=== PATIENT | female | born 1945 | race Caucasian/White ===

== ENCOUNTER 2017-05-15 10:00 | Emergency (ER) | payer MEDICARE, BC ==
[2017-05-15 11:13] LABS: CHLORIDE,CL 105 mEq/L (98-106); SODIUM,NA 140 mEq/L (136-145)
[2017-05-15 11:16] VITALS: BP 146/80
[2017-05-15] MEDS ORDERED: LORazepam 2 MG/ML SDV IM ONE (11:50)
--- NOTE | 2017-05-15 11:54 | EDM.PDOC ---
ED HPI GENERAL MEDICAL PROBLEM - General Chief Complaint: General Stated Complaint: anxiety attack Time Seen by Provider: 05/15/17 10:10 Source of Information: Reports: Patient, Family (son) History Limitations: Reports: No Limitations - History of Present Illness INITIAL COMMENTS - FREE TEXT/NARRATIVE: States has been having increase in anxiety attacks. Has been having them daily this week. Usually they start in the afternoon or later evening but this one started this morning. The anxiety is aggravating her parkinson's as her tremors are much worse which is causing her to have muscle aches and pains from that. States that she is not sure what is making her anxious but she worries about everything. She is worried about her heart although she denies any chest pains. Has been taking her meds as ordered and does see a counseler at [facility] by the name of Fabiana. She denies missing any of her doses at this time. Son does get her meds ready for her. No suicidal thoughts noted. Onset: Gradual Duration: Getting Worse Associated Symptoms: Denies: Chest Pain, Diaphoresis, Nausea/Vomiting, Shortness of Breath, Syncope - Related Data Allergies Allergy/AdvReac Type Severity Reaction Status Date / Time amoxicillin Allergy Cannot Verified 05/15/17 10:03 Remember cephalexin [From Keflex] Allergy Cannot Verified 05/15/17 10:03 Remember clavulanic acid Allergy Cannot Verified 05/15/17 10:03 [From Augmentin] Remember lomefloxacin [From Maxaquin] Allergy Cannot Verified 05/15/17 10:03 Remember Quinolones Allergy Cannot Verified 05/15/17 10:03 Remember terbutaline [From Brethine] Allergy Cannot Verified 05/15/17 10:03 Remember Home Meds: Home Meds Aspirin [Low Dose Aspirin EC] 81 mg PO BEDTIME 05/19/16 [History] Bisacodyl [Dulcolax] 10 mg RECTAL DAILY PRN 05/19/16 [History] Carbidopa/Levodopa [Sinemet 25-100 mg Tablet] 1 tab PO ASDIRECTED 05/19/16 [ History] Carboxymethylcellulose Sodium [Refresh Tears] 1 drop EYEBOTH BID 05/19/16 [ History] Cyanocobalamin (Vitamin B12) [Vitamin B12] 1,000 mcg IM Q30D 05/19/16 [History] Docusate Sodium [Colace] 100 mg PO DAILY 05/19/16 [History] Levothyroxine Sodium 100 mcg PO DAILY 05/19/16 [History] Melatonin 5 mg PO BEDTIME 05/19/16 [History] Mirtazapine 30 mg PO BEDTIME 05/19/16 [History] clonazePAM [Clonazepam] 0.5 mg PO 06,08,13 05/19/16 [History] clonazePAM [Clonazepam] 1 mg PO 1600 05/19/16 [History] Polyethylene Glycol 3350 [MiraLAX] 17 gm PO DAILY 08/06/16 [History] Sucralfate 1 gm PO QID 04/29/17 [History] busPIRone HCl [Buspirone HCl] 5 mg PO ASDIRECTED 04/29/17 [History] Past Medical History HEENT History: Reports: Sinusitis Cardiovascular History: Reports: Hypertension Neurological History: Reports: Parkinson's Psychiatric History: Reports: Anxiety, Depression Hematologic History: Reports: B12 Deficiency - Past Surgical History HEENT Surgical History: Reports: Tonsillectomy Female Surgical History: Reports: Tubal Ligation Musculoskeletal Surgical History: Reports: Knee Replacement Social & Family History - Family History Family Medical History: Noncontributory - Tobacco Use Smoking Status *Q: Never Smoker Second Hand Smoke Exposure: No - Recreational Drug Use Recreational Drug Use: No - Living Situation & Occupation Living situation: Reports: Single, Alone Occupation: Retired ED ROS GENERAL - Review of Systems Review Of Systems: See Below Constitutional: Reports: No Symptoms HEENT: Reports: No Symptoms Respiratory: Reports: No Symptoms Cardiovascular: Reports: No Symptoms GI/Abdominal: Reports: No Symptoms : Reports: No Symptoms Musculoskeletal: Reports: Muscle Pain. Denies: Muscle Stiffness Skin: Reports: No Symptoms Neurological: Denies: Confusion, Dizziness, Headache Psychiatric: Reports: Anxiety. Denies: Hallucinations, Suicidal Ideation ED EXAM, GENERAL - Physical Exam Exam: See Below Exam Limited By: No Limitations General Appearance: Alert, Anxious Ears: Normal External Exam, Normal Canal, Normal TMs Throat/Mouth: Normal Inspection, Normal Voice, No Airway Compromise Head: Atraumatic, Normocephalic Neck: Normal Inspection, Supple, Non-Tender, Full Range of Motion Respiratory/Chest: No Respiratory Distress, Lungs Clear, Normal Breath Sounds, Chest Non-Tender Cardiovascular: Regular Rate, Rhythm, No Edema GI/Abdominal: Normal Bowel Sounds, Soft, Non-Tender, No Organomegaly Extremities: Other (Has constant uncontrolled shaking of the right leg while lying on the bed. Is able to stop it when she puts pressure on it or stands on it.) Neurological: Alert, Oriented Psychiatric: Anxious Skin Exam: Warm, Dry Course - Vital Signs Last Recorded V/S: Last Vital Signs Temp 98.2 F 05/15/17 11:05 Pulse 65 05/15/17 11:05 Resp 18 05/15/17 11:05 BP 146/80 H 05/15/17 11:05 Pulse Ox 97 05/15/17 11:05 - Orders/Labs/Meds Labs: Laboratory Tests 05/15/17 05/15/17 05/15/17 Range/Units 10:49 10:51 10:51 WBC 6.9 (5.0-10.0) 10^3/uL RBC 4.64 (4.00-5.50) 10^6/uL Hgb 13.6 (12.0-16.0) g/dL Hct 40.6 (37.0-47.0) % MCV 87.5 (82.0-94.0) fL MCH 29.3 (27.0-32.0) pg MCHC 33.5 (33.0-38.0) g/dL RDW Coeff of Srinivasa 13.4 (11.0-15.0) % Plt Count 166 (150-400) 10^3/uL Neut % (Auto) 77.4 (35-85) % Lymph % (Auto) 16.2 (10-55) % Vance % (Auto) 6.0 (0-16) % Eos % (Auto) 0.3 (0-5) % Baso % (Auto) 0.1 (0-3) % Neut # (Auto) 5.31 (1.80-7.00) 10^3/uL Lymph # (Auto) 1.11 (1.00-4.80) 10^3/uL Vance # (Auto) 0.41 (0.00-0.80) 10^3/uL Eos # (Auto) 0.02 (0.00-0.45) 10^3/uL Baso # (Auto) 0.01 10^3/uL Sodium 140 (136-145) mEq/L Potassium 4.7 (3.5-5.0) mEq/L Chloride 105 (98-106) mEq/L Carbon Dioxide 29 (21-32) mmol/L BUN 19 H (7-18) mg/dL Creatinine 0.7 (0.6-1.0) mg/dL Est Cr Clr Drug Dosing TNP Estimated GFR (MDRD) > 60 (>=60) mL/min Glucose 101 H (75-99) mg/dL Calcium 8.9 (8.4-10.1) mg/dL Total Bilirubin 0.3 (0.0-1.0) mg/dL AST 16 (15-37) U/L ALT 13 (12-78) U/L Alkaline Phosphatase 107 (46-116) U/L Total Protein 7.0 (6.4-8.2) g/dL Albumin 3.9 (3.4-5.0) g/dL TSH, Ultra Sensitive 0.11 L (0.36-5.60) uIU/mL Urine Color Yellow (YELLOW) Urine Appearance Clear (CLEAR) Urine pH 7.5 (4.5-8.0) Ur Specific [place] 1.015 (1.003-1.020) Urine Protein Negative (NEGATIVE) mg/dL Urine Glucose (UA) Negative (NEGATIVE) mg/dL Urine Ketones Negative (NEGATIVE) mg/dL Urine Occult Blood Negative (NEGATIVE) Urine Nitrite Negative (NEGATIVE) Urine Bilirubin Negative (NEGATIVE) Urine Urobilinogen 1.0 (0.2-1.0) EU/dL Ur Leukocyte Esterase Negative (NEGATIVE) Urine RBC Not seen (0-5) /HPF Urine WBC Not seen (0-5) /HPF Ur Squamous Epith Cells Occasional H (NOT SEEN) /HPF Meds: Medications Discontinued Medications Generic Name Dose Route Start Last Admin Trade Name Freq PRN Reason Stop Dose Admin Lorazepam Confirm 05/15/17 12:01 05/15/17 12:42 Ativan Administered 05/15/17 12:02 Not Given Dose 2 mg .ROUTE .STK-MED ONE Lorazepam 1 mg 05/15/17 12:00 05/15/17 12:10 Ativan IM 05/15/17 12:01 1 mg ONETIME ONE Administration Departure - Departure Time of Disposition: 11:51 Disposition: Home, Self-Care 01 Condition: Good Clinical Impression: Anxiety - Discharge Information Forms: ED Department Discharge Additional Instructions: Increase the clonazepam to 1 mg 4 times a day. Keep appt with Dr. Mcmullen on Thursday - Problem List & Annotations (1) Anxiety SNOMED Code(s): 65358170 Code(s): F41.9 - ANXIETY DISORDER, UNSPECIFIED Status: Chronic Priority: High - Problem List Review Problem List Initiated/Reviewed/Updated: Yes - Assessment/Plan Plan: Discussed with DR. Mcmullen and recommend med changes as noted above. Dr. Mcmullen will see on follow up Thursday. Return to the ER if symptoms do not improve
[2017-05-15] MEDS ORDERED: LORazepam 2 MG/ML Syringe IM ONE (12:00)
[2017-05-15] MEDS ORDERED: LORazepam 2 MG/ML Syringe ONE (12:01)
== END 2017-05-15 12:20 | disposition home or self-care (01) ==
LOC: CC.ED 10:00
DX: F41.9 Anxiety disorder, unspecified (principal); F32.9 Major depressive disorder, single episode, unspecified; I10 Essential (primary) hypertension; Z98.51 Tubal ligation status; Z98.890 Other specified postprocedural states; Z79.899 Other long term (current) drug therapy; Z79.82 Long term (current) use of aspirin; Z88.8 Allergy status to other drugs, medicaments and biological substances; Z96.659 Presence of unspecified artificial knee joint; Z88.1 Allergy status to other antibiotic agents
CPT/HCPCS: 36415; 80053; 81001; 84443; 85025; 96372; 99283; J2060

== ENCOUNTER 2017-05-19 09:17 | Inpatient (IN) | payer MEDICARE, BC ==
[2017-05-19] MEDS ORDERED: Sodium Chloride 0.9% 10 ML Syringe FLUSH PRN (10:41)
[2017-05-19] MEDS ORDERED: Bisacodyl 10 MG Supp RECTAL PRN (10:45)
[2017-05-19] MEDS: Carbidopa/Levodopa 25-100 MG Tab PO SCH ×5 (10:58→18:47)
[2017-05-19] MEDS: Sertraline 25 MG Tab PO SCH (10:58)
[2017-05-19 11:26] LABS: CHLORIDE,CL 107 mEq/L (98-106); SODIUM,NA 141 mEq/L (136-145)
[2017-05-19] MEDS: ClonazePAM 1 MG Tab PO SCH ×2 (12:53→15:23)
[2017-05-19] MEDS ORDERED: Ondansetron 4 MG Tab.DIS PO PRN (15:09)
[2017-05-19] MEDS: Aspirin 81 MG Tab.EC PO SCH (20:02)
[2017-05-19] MEDS: Mirtazapine 15 MG Tab PO SCH (20:02)
[2017-05-19] MEDS: Enoxaparin 30 MG/0.3 ML Syringe SUBCUT SCH (20:02)
[2017-05-19] MEDS: Temazepam 15 MG Cap PO PRN (20:07)
[2017-05-19] MEDS: MELATONIN 5 MG PO SCH (21:13)
[2017-05-19] MEDS: Polyvinyl Alcohol 1.4% Ophth Soln 15 ML Bottle EYEBOTH SCH (21:13)
[2017-05-20] MEDS: Polyvinyl Alcohol 1.4% Ophth Soln 15 ML Bottle EYEBOTH SCH ×2 (06:06→20:52)
[2017-05-20] MEDS: Carbidopa/Levodopa 25-100 MG Tab PO SCH ×7 (06:07→18:58)
[2017-05-20] MEDS: Levothyroxine 100 MCG Tab PO SCH (06:07)
[2017-05-20] MEDS: ClonazePAM 1 MG Tab PO SCH ×4 (06:07→15:52)
[2017-05-20] MEDS: Polyethylene Glycol 3350 Powder 17 GM Packet PO SCH (07:48)
[2017-05-20] MEDS: Sertraline 25 MG Tab PO SCH (11:00)
[2017-05-20] MEDS: Acetaminophen 325 MG Tab PO PRN (19:46)
[2017-05-20] MEDS: Mirtazapine 15 MG Tab PO SCH (20:52)
[2017-05-20] MEDS: Enoxaparin 30 MG/0.3 ML Syringe SUBCUT SCH (20:52)
[2017-05-20] MEDS: Aspirin 81 MG Tab.EC PO SCH (20:52)
[2017-05-20] MEDS: MELATONIN 5 MG PO SCH (20:53)
[2017-05-21] MEDS: Acetaminophen 325 MG Tab PO PRN (03:50)
[2017-05-21] MEDS: Carbidopa/Levodopa 25-100 MG Tab PO SCH ×7 (06:57→19:12)
[2017-05-21] MEDS: Polyvinyl Alcohol 1.4% Ophth Soln 15 ML Bottle EYEBOTH SCH ×2 (06:57→20:13)
[2017-05-21] MEDS: ClonazePAM 1 MG Tab PO SCH ×4 (06:57→15:59)
[2017-05-21] MEDS: Levothyroxine 100 MCG Tab PO SCH (07:00)
[2017-05-21] MEDS: Polyethylene Glycol 3350 Powder 17 GM Packet PO SCH (08:01)
--- NOTE | 2017-05-21 08:12 | PCM.PN ---
- General Info Date of Service: 05/20/17 Admission Dx/Problem (Free Text): Short of Breath Anxiety Functional Status: Reports: Pain Controlled, Tolerating Diet - Review of Systems General: Reports: Weakness, Fatigue. Denies: Fever HEENT: Reports: No Symptoms Pulmonary: Denies: Shortness of Breath, Cough, Sputum Cardiovascular: Denies: Chest Pain, Edema, Lightheadedness Gastrointestinal: Denies: Abdominal Pain, Nausea, Vomiting Genitourinary: Reports: No Symptoms Musculoskeletal: Reports: No Symptoms Skin: Reports: No Symptoms Neurological: Reports: No Symptoms Psychiatric: Reports: Anxiety - Patient Data Vitals - Most Recent: Last Vital Signs Temp 97.1 F 05/21/17 04:00 Pulse 68 05/21/17 04:00 Resp 18 05/21/17 04:00 BP 130/59 L 05/21/17 04:00 Pulse Ox 98 05/21/17 04:00 Weight - Most Recent: 135 lb 11.2 oz Med Orders - Current: Current Medications Acetaminophen (Tylenol) 650 mg PO Q4H PRN PRN Reason: Pain (Mild 1-3)/fever Last Admin: 05/21/17 03:50 Dose: 650 mg Artificial Tears (Liquitears 1.4% Ophth Soln) 0 ml EYEBOTH 0700,2100 [facility] Last Admin: 05/21/17 06:57 Dose: 1 drop Aspirin (Halfprin) 81 mg PO 2100 [facility] Last Admin: 05/20/17 20:52 Dose: 81 mg Bisacodyl (Dulcolax) 10 mg RECTAL DAILY PRN PRN Reason: Constipation Carbidopa/Levodopa (Sinemet 25-100 Mg) 1 tab PO 1700,1900 [facility] Last Admin: 05/20/17 18:58 Dose: 1 tab Carbidopa/Levodopa (Sinemet 25-100 Mg) 1.5 tab PO 07,09,11,13,15 [facility] Last Admin: 05/21/17 06:57 Dose: 1.5 tab Clonazepam (Klonopin) 1 mg PO 0700,0900,1300,1600 [facility] Last Admin: 05/21/17 06:57 Dose: 1 mg Cyanocobalamin (Vitamin B12) 1,000 mcg IM Q30D [facility] Enoxaparin Sodium (Lovenox) 30 mg SUBCUT Q24H [facility] Last Admin: 05/20/17 20:52 Dose: 30 mg Levothyroxine Sodium (Synthroid) 100 mcg PO 0700 [facility] Last Admin: 05/21/17 07:00 Dose: 100 mcg Mirtazapine (Remeron) 30 mg PO 2100 [facility] Last Admin: 05/20/17 20:52 Dose: 30 mg Ptom[Melatonin] 5 Mg ()) 5 mg PO 2100 [facility] Last Admin: 05/20/17 20:53 Dose: Not Given Ondansetron HCl (Zofran Odt) 4 mg PO Q6H PRN PRN Reason: Nausea/Vomiting Last Admin: 05/19/17 15:23 Dose: 4 mg Polyethylene Glycol (Miralax) 17 gm PO DAILY [facility] Last Admin: 05/21/17 08:01 Dose: 17 gm Sertraline HCl (Zoloft) 50 mg PO 1100 [facility] Last Admin: 05/20/17 11:00 Dose: 50 mg Sodium Chloride (Saline Flush) 10 ml FLUSH ASDIRECTED PRN PRN Reason: Keep Vein Open Temazepam (Restoril) 15 mg PO BEDTIME PRN PRN Reason: Sleep Last Admin: 05/19/17 20:07 Dose: 15 mg - Exam General: Alert, Oriented HEENT: Mucous Membr. Moist/[place] Neck: Supple Lungs: Clear to Auscultation, Normal Respiratory Effort Cardiovascular: Regular Rate, Regular Rhythm GI/Abdominal Exam: Normal Bowel Sounds, Soft, Non-Tender Skin: Warm, Dry Neurological: No New Focal Deficit - Problem List & Annotations (1) Anxiety SNOMED Code(s): 60574795 Code(s): F41.9 - ANXIETY DISORDER, UNSPECIFIED Status: Chronic Priority: High Current Visit: Yes (2) Shortness of breath SNOMED Code(s): 067550464 Code(s): R06.02 - SHORTNESS OF BREATH Status: Acute Priority: High Current Visit: Yes - Problem List Review Problem List Initiated/Reviewed/Updated: Yes - Assessment Assessment:: Anxiety SOB - Plan Plan:: Patient doing better today. States less short of breath today, feels anxiety is better. Does admit to being very depressed. Cardiac enzymes, d-dimer, work up on admit was negative. Tolerating diet. Encouraged to ambulate. Possible discharge home tomorrow.
[2017-05-21] MEDS: Sertraline 25 MG Tab PO SCH (10:59)
--- NOTE | 2017-05-21 12:26 | PCM.PN ---
- General Info Date of Service: 05/21/17 Admission Dx/Problem (Free Text): Short of Breath Anxiety Functional Status: Reports: Pain Controlled, Tolerating Diet, Ambulating - Review of Systems General: Reports: Weakness, Fatigue. Denies: Fever HEENT: Reports: No Symptoms Pulmonary: Denies: Shortness of Breath, Cough Cardiovascular: Denies: Chest Pain, Edema, Lightheadedness Gastrointestinal: Denies: Abdominal Pain, Nausea, Vomiting Musculoskeletal: Reports: No Symptoms Skin: Reports: No Symptoms Psychiatric: Reports: Depression, Anxiety - Patient Data Vitals - Most Recent: Last Vital Signs Temp 97.7 F 05/21/17 08:00 Pulse 95 05/21/17 08:00 Resp 20 05/21/17 08:00 BP 134/47 L 05/21/17 08:00 Pulse Ox 96 05/21/17 08:00 Weight - Most Recent: 135 lb 11.2 oz Med Orders - Current: Current Medications Acetaminophen (Tylenol) 650 mg PO Q4H PRN PRN Reason: Pain (Mild 1-3)/fever Last Admin: 05/21/17 03:50 Dose: 650 mg Artificial Tears (Liquitears 1.4% Ophth Soln) 0 ml EYEBOTH 0700,2100 [facility] Last Admin: 05/21/17 06:57 Dose: 1 drop Aspirin (Halfprin) 81 mg PO 2100 [facility] Last Admin: 05/20/17 20:52 Dose: 81 mg Bisacodyl (Dulcolax) 10 mg RECTAL DAILY PRN PRN Reason: Constipation Carbidopa/Levodopa (Sinemet 25-100 Mg) 1 tab PO 1700,1900 [facility] Last Admin: 05/20/17 18:58 Dose: 1 tab Carbidopa/Levodopa (Sinemet 25-100 Mg) 1.5 tab PO 07,09,11,13,15 [facility] Last Admin: 05/21/17 10:59 Dose: 1.5 tab Clonazepam (Klonopin) 1 mg PO 0700,0900,1300,1600 [facility] Last Admin: 05/21/17 09:03 Dose: 1 mg Cyanocobalamin (Vitamin B12) 1,000 mcg IM Q30D [facility] Enoxaparin Sodium (Lovenox) 30 mg SUBCUT Q24H [facility] Last Admin: 05/20/17 20:52 Dose: 30 mg Levothyroxine Sodium (Synthroid) 100 mcg PO 0700 [facility] Last Admin: 05/21/17 07:00 Dose: 100 mcg Mirtazapine (Remeron) 30 mg PO 2100 [facility] Last Admin: 05/20/17 20:52 Dose: 30 mg Ptom[Melatonin] 5 Mg ()) 5 mg PO 2100 [facility] Last Admin: 05/20/17 20:53 Dose: Not Given Ondansetron HCl (Zofran Odt) 4 mg PO Q6H PRN PRN Reason: Nausea/Vomiting Last Admin: 05/19/17 15:23 Dose: 4 mg Polyethylene Glycol (Miralax) 17 gm PO DAILY [facility] Last Admin: 05/21/17 08:01 Dose: 17 gm Sertraline HCl (Zoloft) 50 mg PO 1100 [facility] Last Admin: 05/21/17 10:59 Dose: 50 mg Sodium Chloride (Saline Flush) 10 ml FLUSH ASDIRECTED PRN PRN Reason: Keep Vein Open Temazepam (Restoril) 15 mg PO BEDTIME PRN PRN Reason: Sleep Last Admin: 05/19/17 20:07 Dose: 15 mg - Exam General: Alert, Oriented HEENT: Mucous Membr. Moist/[place] Neck: Supple Lungs: Clear to Auscultation, Normal Respiratory Effort Cardiovascular: Regular Rate, Regular Rhythm GI/Abdominal Exam: Normal Bowel Sounds, Soft, Non-Tender Extremities: Normal Inspection, No Pedal Edema Skin: Warm, Dry Neurological: No New Focal Deficit - Problem List & Annotations (1) Depression SNOMED Code(s): 81072780 Code(s): F32.9 - MAJOR DEPRESSIVE DISORDER, SINGLE EPISODE, UNSPECIFIED Status: Acute Priority: High Current Visit: Yes Qualifiers: Depression Type: major depressive disorder Major depression recurrence: recurrent Active/Remission status: currently active Major depression episode severity: severe Psychotic features: without psychotic features Qualified Code(s): F33.2 - Major depressive disorder, recurrent severe without psychotic features (2) Anxiety SNOMED Code(s): 03170913 Code(s): F41.9 - ANXIETY DISORDER, UNSPECIFIED Status: Chronic Priority: High Current Visit: Yes (3) Shortness of breath SNOMED Code(s): 542930046 Code(s): R06.02 - SHORTNESS OF BREATH Status: Acute Priority: High Current Visit: Yes - Problem List Review Problem List Initiated/Reviewed/Updated: Yes - Assessment Assessment:: Depression Anxiety SOB - Plan Plan:: Patient doing better today. States less short of breath today, feels anxiety is better. Does admit to being very depressed. Cardiac enzymes, d-dimer, work up on admit was negative. Tolerating diet. Encouraged to ambulate. Possible discharge home tomorrow. 05-21-2017 Patient much more down today, sad. Talking of and how she wishes she "could just ". Denies being suicidal but does feel very hopeless. Not wanting to get up and moving much today. Denies feeling short of breath. Does still feel anxious. Did discuss custodial placement with patient as has had difficulty in the past especially during the winter months with intractable depression and do feel she is vulnerable as she admits that she doesn't much cook for herself, doesn't drive. States only eats microwave food as she doesn't trust herself using the stove. Staff will consult son in regards to placement versus home with home health.
[2017-05-21] MEDS: Enoxaparin 30 MG/0.3 ML Syringe SUBCUT SCH (20:11)
[2017-05-21] MEDS: MELATONIN 5 MG PO SCH (20:17)
[2017-05-21] MEDS: Mirtazapine 15 MG Tab PO SCH (20:17)
[2017-05-21] MEDS: Temazepam 15 MG Cap PO PRN (20:17)
[2017-05-21] MEDS: Aspirin 81 MG Tab.EC PO SCH (20:17)
[2017-05-22] MEDS: Levothyroxine 100 MCG Tab PO SCH (06:44)
[2017-05-22] MEDS: ClonazePAM 1 MG Tab PO SCH ×2 (06:44→08:26)
[2017-05-22] MEDS: Carbidopa/Levodopa 25-100 MG Tab PO SCH ×3 (06:44→11:28)
[2017-05-22] MEDS: Polyvinyl Alcohol 1.4% Ophth Soln 15 ML Bottle EYEBOTH SCH (06:45)
[2017-05-22] MEDS: Polyethylene Glycol 3350 Powder 17 GM Packet PO SCH (08:21)
[2017-05-22 11:19] VITALS: BP 89/53
[2017-05-22] MEDS: Sertraline 25 MG Tab PO SCH (11:27)
[2017-05-22] MEDS ORDERED: ClonazePAM 1 MG Tab PO SCH (13:00)
[2017-05-22] MEDS ORDERED: QUEtiapine 25 MG Tab PO SCH (21:00)
[2017-05-23] MEDS ORDERED: Sertraline 25 MG Tab PO SCH (11:00)
--- NOTE | 2017-05-25 08:11 | DISCH ---
ADMISSION DIAGNOSES: 1. Shortness of breath. 2. Severe depression. 3. Anxiety. 4. Parkinson disease. 5. Hypothyroidism. DISCHARGE DIAGNOSIS: 1. SHORTNESS OF BREATH. 2. SEVERE DEPRESSION. 3. ANXIETY. 4. PARKINSON DISEASE. 5. HYPOTHYROIDISM. HISTORY: The patient presented to my office with ongoing issues with shortness of breath. She has been having severe issues with her depression and has a history of longstanding major depressive disorder. She has been having increasing anxiety and the assumption is her shortness of breath is when her anxiety is out of control. We elected to put her in the hospital for appropriate cares and workup to rule out any other pathology for her shortness of breath. At the time of her admission, her initial workup including chest x- ray, EKG, and lab work were all fine. She had negative cardiac enzymes and D- dimer. We elected to put her into the hospital for acute care and monitor and do medication adjustments. HOSPITAL COURSE: The patient had her Klonopin increased while here. She made a some improvement with her anxiety. She is still having issues. She is starting now to have more and more issues which she describes as hallucination. It is hard to tell if these are in dreams because they do happen at night, but she says they feel very real. She has severe depression and this has been recalcitrant in the past. She has been on Abilify without success. We never had her on the atypical antipsychotic Seroquel and I think that is the next step. For the most part, she has been stable here from a cardiopulmonary standpoint and at this time she is a debilitated, lives at home alone and just could not take care of herself due to her severe depression and anxiety. We are going to put her in swing bed. I am going to take her off Remeron. I am going to put her on Seroquel. We will start a low dose of 25 mg at night and titrate up. Plan to back off her Klonopin as she has been little more sedating. We will use a lowly scheduled dose of Ativan and then a p.r.n. dose as well. She will be put in swing bed for a short-term stay. We will entertain intermediate placement as well. COMPLICATIONS: During her stay were none. CONSULTATIONS: PT. DISPOSITION: Discharged to swing bed. SHALOM/JORI /[id number]
[2017-06-19] MEDS ORDERED: Cyanocobalamin (Vitamin B12) 1,000 MCG/ML SDV IM SCH (08:00)
== END 2017-05-22 12:18 | disposition swing bed (61) | DRG 880 ==
LOC: CC.MS 09:17 → UNDOADMIN 09:17 → CC.MS 10:41
PROVIDERS: ADMIT Family Medicine; ATTEND Family Medicine
DX: F41.9 Anxiety disorder, unspecified (principal); F32.9 Major depressive disorder, single episode, unspecified; G20 Parkinson's disease; E03.9 Hypothyroidism, unspecified; K21.9 Gastro-esophageal reflux disease without esophagitis; R06.02 Shortness of breath; N32.81 Overactive bladder; D51.0 Vitamin B12 deficiency anemia due to intrinsic factor deficiency; Z96.659 Presence of unspecified artificial knee joint; Z79.899 Other long term (current) drug therapy; Z88.1 Allergy status to other antibiotic agents
CPT/HCPCS: 36415; 71020; 80053; 81001; 82962; 84443; 84484; 85025; 85379; 86140; 93005; A9270-GY; J1650

== ENCOUNTER 2017-05-22 12:39 | Inpatient (IN) | payer MEDICARE, BC ==
[2017-05-22] MEDS ORDERED: Ondansetron 4 MG Tab.DIS PO PRN (13:21)
[2017-05-22] MEDS ORDERED: Sodium Chloride 0.9% 10 ML Syringe FLUSH PRN ×2 (13:21)
[2017-05-22] MEDS ORDERED: Bisacodyl 10 MG Supp RECTAL PRN (13:21)
[2017-05-22] MEDS: ClonazePAM 1 MG Tab PO SCH ×2 (14:13→16:09)
[2017-05-22] MEDS: Carbidopa/Levodopa 25-100 MG Tab PO SCH ×4 (14:15→19:00)
[2017-05-22] MEDS: LORazepam 2 MG/ML Syringe IVPUSH SCH (20:14)
[2017-05-22] MEDS: Enoxaparin 30 MG/0.3 ML Syringe SUBCUT SCH (20:18)
[2017-05-22] MEDS: Polyvinyl Alcohol 1.4% Ophth Soln 15 ML Bottle EYEBOTH SCH (20:29)
[2017-05-22] MEDS: Aspirin 81 MG Tab.EC PO SCH (20:29)
[2017-05-22] MEDS: QUEtiapine 25 MG Tab PO SCH (20:30)
[2017-05-22] MEDS: MELATONIN 5 MG PO SCH (20:31)
[2017-05-22] MEDS: Acetaminophen 325 MG Tab PO PRN (21:31)
[2017-05-23] MEDS: Polyvinyl Alcohol 1.4% Ophth Soln 15 ML Bottle EYEBOTH SCH ×2 (06:54→20:17)
[2017-05-23] MEDS: ClonazePAM 1 MG Tab PO SCH ×4 (06:54→16:23)
[2017-05-23] MEDS: Levothyroxine 100 MCG Tab PO SCH (06:55)
[2017-05-23] MEDS: Carbidopa/Levodopa 25-100 MG Tab PO SCH ×7 (06:56→18:52)
[2017-05-23] MEDS: LORazepam 2 MG/ML Syringe IVPUSH SCH ×2 (08:10→19:28)
[2017-05-23] MEDS: Polyethylene Glycol 3350 Powder 17 GM Packet PO SCH (08:10)
[2017-05-23] MEDS: Sertraline 25 MG Tab PO SCH (11:09)
[2017-05-23] MEDS: Aspirin 81 MG Tab.EC PO SCH (20:18)
[2017-05-23] MEDS: QUEtiapine 25 MG Tab PO SCH (20:18)
[2017-05-23] MEDS: Enoxaparin 30 MG/0.3 ML Syringe SUBCUT SCH (20:22)
[2017-05-23] MEDS: MELATONIN 5 MG PO SCH (20:23)
[2017-05-23] MEDS ORDERED: QUEtiapine 25 MG Tab ONE (20:37)
[2017-05-24] MEDS: Polyvinyl Alcohol 1.4% Ophth Soln 15 ML Bottle EYEBOTH SCH ×2 (06:53→20:38)
[2017-05-24] MEDS: ClonazePAM 1 MG Tab PO SCH ×4 (06:54→16:04)
[2017-05-24] MEDS: Levothyroxine 100 MCG Tab PO SCH (06:54)
[2017-05-24] MEDS: Carbidopa/Levodopa 25-100 MG Tab PO SCH ×7 (06:55→19:02)
[2017-05-24] MEDS: Polyethylene Glycol 3350 Powder 17 GM Packet PO SCH (08:21)
[2017-05-24] MEDS: LORazepam 2 MG/ML Syringe IVPUSH SCH ×2 (08:25→19:33)
[2017-05-24] MEDS: Sertraline 25 MG Tab PO SCH (10:58)
[2017-05-24] MEDS: Acetaminophen 325 MG Tab PO PRN (16:39)
[2017-05-24] MEDS: Aspirin 81 MG Tab.EC PO SCH (20:37)
[2017-05-24] MEDS: QUEtiapine 25 MG Tab PO SCH (20:37)
[2017-05-24] MEDS: Enoxaparin 30 MG/0.3 ML Syringe SUBCUT SCH (20:38)
[2017-05-24] MEDS: MELATONIN 5 MG PO SCH (20:39)
[2017-05-25] MEDS: Acetaminophen 325 MG Tab PO PRN ×2 (01:53→20:15)
[2017-05-25] MEDS: Polyvinyl Alcohol 1.4% Ophth Soln 15 ML Bottle EYEBOTH SCH ×2 (06:56→20:18)
[2017-05-25] MEDS: ClonazePAM 1 MG Tab PO SCH ×4 (06:57→15:27)
[2017-05-25] MEDS: Levothyroxine 100 MCG Tab PO SCH (06:57)
[2017-05-25] MEDS: Carbidopa/Levodopa 25-100 MG Tab PO SCH ×7 (06:58→19:24)
[2017-05-25] MEDS: Polyethylene Glycol 3350 Powder 17 GM Packet PO SCH (08:01)
[2017-05-25] MEDS: LORazepam 2 MG/ML Syringe IVPUSH SCH (08:01)
[2017-05-25] MEDS: Sertraline 25 MG Tab PO SCH (11:13)
[2017-05-25] MEDS: QUEtiapine 25 MG Tab PO SCH (20:15)
[2017-05-25] MEDS: Aspirin 81 MG Tab.EC PO SCH (20:15)
[2017-05-25] MEDS: Enoxaparin 30 MG/0.3 ML Syringe SUBCUT SCH (20:16)
[2017-05-25] MEDS: MELATONIN 5 MG PO SCH (20:17)
[2017-05-26] MEDS: Acetaminophen 325 MG Tab PO PRN ×3 (06:06→22:35)
[2017-05-26] MEDS: Levothyroxine 100 MCG Tab PO SCH (06:07)
[2017-05-26] MEDS: ClonazePAM 1 MG Tab PO SCH ×4 (06:07→16:55)
[2017-05-26] MEDS: Carbidopa/Levodopa 25-100 MG Tab PO SCH ×7 (06:07→18:54)
[2017-05-26] MEDS: Polyvinyl Alcohol 1.4% Ophth Soln 15 ML Bottle EYEBOTH SCH ×2 (06:09→20:06)
[2017-05-26] MEDS: Polyethylene Glycol 3350 Powder 17 GM Packet PO SCH (07:13)
[2017-05-26] MEDS: Sertraline 25 MG Tab PO SCH (11:03)
[2017-05-26] MEDS ORDERED: Ibuprofen 200 MG Tab PO PRN (17:04)
[2017-05-26] MEDS: QUEtiapine 25 MG Tab PO SCH (20:05)
[2017-05-26] MEDS: Aspirin 81 MG Tab.EC PO SCH (20:05)
[2017-05-26] MEDS: Enoxaparin 30 MG/0.3 ML Syringe SUBCUT SCH (20:06)
[2017-05-26] MEDS: MELATONIN 5 MG PO SCH (20:06)
[2017-05-27] MEDS: ClonazePAM 1 MG Tab PO SCH ×2 (06:23→09:07)
[2017-05-27] MEDS: Carbidopa/Levodopa 25-100 MG Tab PO SCH ×3 (06:23→10:52)
[2017-05-27] MEDS: Polyvinyl Alcohol 1.4% Ophth Soln 15 ML Bottle EYEBOTH SCH (06:23)
[2017-05-27] MEDS: Levothyroxine 100 MCG Tab PO SCH (06:23)
[2017-05-27] MEDS: Polyethylene Glycol 3350 Powder 17 GM Packet PO SCH (08:07)
[2017-05-27 08:20] VITALS: BP 89/51
[2017-05-27] MEDS: Sertraline 25 MG Tab PO SCH (10:52)
--- NOTE | 2017-05-27 21:38 | PCM.DCSUM1 ---
Discharge Summary - Hospital Course Free Text/Narrative:: Patient admitted to swing bed with ongoing mental health concerns. Has had ongoing issues with depression and anxiety. Difficulty managing at home without her son involvement for assistance and meds. Patient has hallucinations or description of dreams as these do occur at night. Patient has tried multiple medications in the past for her mental health issues. While admitted in acute, did have clonazepam increased. Seroquel added on admission to swing bed as well as Zoloft increased. Patient does often discuss issues with wanting to "be " but she also admits that she has never had a plan nor would she ever "actually try anything". Admitted to swing bed for ongoing observation due to medication changes as she is a vulnerable patient and plan for penitentiary admission with psychiatric care while there. 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 Does get anxious with changes, has ongoing "dreams". Does calm with involvement of nursing staff. Arrangements for ongoing care discussed with son due to her mood changes/anxiety. Is agreeable to penitentiary until medication adjustments are felt to be beneficial with plans to eventually be discharged back home. Did have episode of chest pain with negative troponin and EKG Will continue with increased dose of Zoloft, Seroquel. Continue Clonazepam and Buspar. - Patient Instructions Diet: Usual Diet as Tolerated Activity: As Tolerated - Discharge Plan Prescriptions/Med Rec: QUEtiapine [SEROquel] 50 mg PO 2100 #30 tablet Sertraline [Zoloft] 75 mg PO 1100 #30 tablet Home Medications: Home Meds Aspirin [Low Dose Aspirin EC] 81 mg PO 2100 05/19/16 [History] Bisacodyl [Dulcolax] 10 mg RECTAL DAILY PRN 05/19/16 [History] Carbidopa/Levodopa [Sinemet 25-100 mg Tablet] 1.5 tab PO 07,09,11,13,15 [History] Carboxymethylcellulose Sodium [Refresh Tears] 1 drop EYEBOTH BID 05/19/16 [ History] Cyanocobalamin (Vitamin B12) [Vitamin B12] 1,000 mcg IM Q30D 05/19/16 [History] Levothyroxine Sodium 100 mcg PO 0700 05/19/16 [History] Melatonin 5 mg PO 2100 05/19/16 [History] Polyethylene Glycol 3350 [MiraLAX] 17 gm PO DAILY 08/06/16 [History] Sucralfate 1 gm PO 0700,1100,1500 04/29/17 [History] busPIRone HCl [Buspirone HCl] 5 mg PO 0700,1100,1600 04/29/17 [History] Carbidopa/Levodopa [Sinemet 25-100 mg Tablet] 1 tab PO 1700,1900 05/19/17 [ History] ClonazePAM [KlonoPIN] 0.5 mg PO 0700,0900,1300,1600 tablet 05/27/17 [Rx] QUEtiapine [SEROquel] 50 mg PO 2100 #30 tablet 05/27/17 [Rx] Sertraline [Zoloft] 75 mg PO 1100 #30 tablet 05/27/17 [Rx] - Discharge Summary/Plan Comment DC Time >30 min.: No (Discharge time) Discharge Summary/Plan Comment: Discharge to [facility]. Continue Zoloft, Seroquel, Buspar and Clonazepam. Time spent with patient 15 minutes Time for orders 15 minutes Documentation 10 minutes - General Info Date of Service: 05/27/17 Admission Dx/Problem (Free Text: Depression Anxiety Functional Status: Reports: Pain Controlled, Tolerating Diet, Ambulating - Review of Systems General: Denies: Fever, Weakness, Fatigue HEENT: Reports: No Symptoms Pulmonary: Denies: Shortness of Breath, Cough Cardiovascular: Denies: Chest Pain, Edema, Lightheadedness Gastrointestinal: Reports: No Symptoms Genitourinary: Reports: No Symptoms Musculoskeletal: Reports: No Symptoms Skin: Reports: No Symptoms Psychiatric: Reports: Depression, Anxiety, Hallucinations - Patient Data Vitals - Most Recent: Last Vital Signs Temp 96.4 F 05/27/17 08:00 Pulse 76 05/27/17 08:00 Resp 20 05/27/17 08:00 BP 89/51 L 05/27/17 08:00 Pulse Ox 95 05/27/17 08:00 Weight - Most Recent: 138 lb Med Orders - Current: Current Medications Discontinued Medications Acetaminophen (Tylenol) 650 mg PO Q4H PRN PRN Reason: Pain (Mild 1-3)/fever Last Admin: 05/26/17 22:35 Dose: 650 mg Artificial Tears (Liquitears 1.4% Ophth Soln) 0 ml EYEBOTH 0700,2100 [facility] Last Admin: 05/27/17 06:23 Dose: 1 drop Aspirin (Halfprin) 81 mg PO 2100 [facility] Last Admin: 05/26/17 20:05 Dose: 81 mg Bisacodyl (Dulcolax) 10 mg RECTAL DAILY PRN PRN Reason: Constipation Carbidopa/Levodopa (Sinemet 25-100 Mg) 1 tab PO 1700,1900 [facility] Last Admin: 05/26/17 18:54 Dose: 1 tab Carbidopa/Levodopa (Sinemet 25-100 Mg) 1.5 tab PO 07,09,11,13,15 [facility] Last Admin: 05/27/17 10:52 Dose: 1.5 tab Clonazepam (Klonopin) 0.5 mg PO 0700,0900,1300,1600 [facility] Last Admin: 05/27/17 09:07 Dose: 0.5 mg Cyanocobalamin (Vitamin B12) 1,000 mcg IM Q30D [facility] Enoxaparin Sodium (Lovenox) 30 mg SUBCUT Q24H [facility] Last Admin: 05/26/17 20:06 Dose: 30 mg Ibuprofen (Motrin) 400 mg PO Q6H PRN PRN Reason: Pain Last Admin: 05/26/17 17:20 Dose: 400 mg Levothyroxine Sodium (Synthroid) 100 mcg PO 0700 [facility] Last Admin: 05/27/17 06:23 Dose: 100 mcg Lorazepam (Ativan) 0.5 mg IVPUSH BID [facility] Last Admin: 05/25/17 08:01 Dose: 0.5 mg Ptom [Melatonin] 5 (Mg)) 5 mg PO 2100 [facility] Last Admin: 05/26/17 20:06 Dose: Not Given Ondansetron HCl (Zofran Odt) 4 mg PO Q6H PRN PRN Reason: Nausea/Vomiting Polyethylene Glycol (Miralax) 17 gm PO DAILY [facility] Last Admin: 05/27/17 08:07 Dose: 17 gm Quetiapine Fumarate (Seroquel) 25 mg PO 2100 [facility] Stop: 05/24/17 23:59 Last Admin: 05/24/17 20:37 Dose: 25 mg Quetiapine Fumarate (Seroquel) 50 mg PO 2100 [facility] Last Admin: 05/26/17 20:05 Dose: 50 mg Quetiapine Fumarate (Seroquel) Confirm Administered Dose 25 mg .ROUTE .STK-MED ONE Stop: 05/23/17 20:38 Last Admin: 05/23/17 20:32 Dose: Not Given Sertraline HCl (Zoloft) 75 mg PO 1100 [facility] Last Admin: 05/27/17 10:52 Dose: 75 mg Sodium Chloride (Saline Flush) 10 ml FLUSH ASDIRECTED PRN PRN Reason: Keep Vein Open - Exam General: Reports: Alert, Oriented HEENT: Reports: Mucous Membr. Moist/[employer] Neck: Reports: Supple Lungs: Reports: Clear to Auscultation, Normal Respiratory Effort Cardiovascular: Reports: Regular Rate, Regular Rhythm GI/Abdominal Exam: Normal Bowel Sounds, Soft, Non-Tender *Q Meaningful Use (DIS) - VTE *Q VTE Criteria *Q: - Stroke *Q Stroke Criteria *Q: - AMI *Q AMI Criteria *Q:
[2017-06-19] MEDS ORDERED: Cyanocobalamin (Vitamin B12) 1,000 MCG/ML SDV IM SCH (08:00)
== END 2017-05-27 11:00 | DRG 880 ==
LOC: UNDOADMIN 12:41 → CC.MS 12:41
PROVIDERS: ADMIT Family Medicine; ATTEND Family Medicine
DX: F41.9 Anxiety disorder, unspecified (principal); F32.9 Major depressive disorder, single episode, unspecified; G20 Parkinson's disease; E03.9 Hypothyroidism, unspecified; R06.02 Shortness of breath; D51.0 Vitamin B12 deficiency anemia due to intrinsic factor deficiency; R07.9 Chest pain, unspecified; J30.9 Allergic rhinitis, unspecified; M19.90 Unspecified osteoarthritis, unspecified site; K21.9 Gastro-esophageal reflux disease without esophagitis; N32.81 Overactive bladder; Z88.1 Allergy status to other antibiotic agents; Z88.8 Allergy status to other drugs, medicaments and biological substances; Z79.82 Long term (current) use of aspirin; Z79.899 Other long term (current) drug therapy
CPT/HCPCS: 36415; 84439; 84484; 93005; 97110-GP; 97161-GP; A9270-GY; J1650; J2060

== ENCOUNTER 2020-01-06 07:19 | Emergency (ER) | payer MEDICARE, BC ==
[2020-01-06 07:49] LABS: CHLORIDE,CL 101 mEq/L (98-106); SODIUM,NA 137 mEq/L (136-145)
--- NOTE | 2020-01-06 07:49 | EDM.PDOC ---
ED HPI GENERAL MEDICAL PROBLEM - General Chief Complaint: General Stated Complaint: RLQ pain, hallucinations Time Seen by Provider: 01/06/20 07:48 Source of Information: Reports: Patient History Limitations: Reports: No Limitations - History of Present Illness INITIAL COMMENTS - FREE TEXT/NARRATIVE: Osiris is a 74 yo female with PMH of Parkinsons, dementia, hypothyroidism, anxiety, and recalcitrant depression, who presents to the ED via [facility] with c/o abdominal pain. Patient resides at [facility]. Reportedly called EMS per self with c/o abdominal pain and making bizarre accusations that 3 people were murdered in the room next to her. She reportedly has been having more hallucinations lately. Was recently started on Seroquel. Has been having some medication changes per her psychiatrist as her hallucinations and paranoia have increased. Apparently had recent significant adverse reaction to Lexapro. Has been doing better since Lexapro stopped. Patient is alert to person, place, and time. Is unsure where she lives. She reports that for approximately the past 5 days she has had decreased appetite and not feeling well. Reports that she believes her abdominal pain has been ongoing at least the last 3-4 days, but most likely longer. Reports she cannot remember exactly. She reports her abdomen feels tight and "full." Has been having 3-4 loose stools a day the last few days per her report. She denies any N /V/D, urinary symptoms, fever, chills, malaise, chest pain, or shortness of breath. Onset: Gradual Onset Date: 01/02/20 Duration: Getting Worse Location: Reports: Abdomen Quality: Reports: Ache, Other ("Full") Severity: Severe Associated Symptoms: Reports: Confusion, Loss of Appetite. Denies: Chest Pain, Cough, cough w sputum, Diaphoresis, Fever/Chills, Headaches, Malaise, Nausea/ Vomiting, Rash, Seizure, Shortness of Breath, Syncope, Weakness Right Lower Abdominal Pain Score (Numeric/FACES): 9 - Related Data Allergies Allergy/AdvReac Type Severity Reaction Status Date / Time amoxicillin Allergy Cannot Verified 01/06/20 07:46 Remember cephalexin [From Keflex] Allergy Cannot Verified 01/06/20 07:46 Remember clavulanic acid Allergy Cannot Verified 01/06/20 07:46 [From Augmentin] Remember escitalopram [From Lexapro] Allergy Cannot Verified 01/06/20 07:45 Remember lomefloxacin [From Maxaquin] Allergy Cannot Verified 01/06/20 07:46 Remember Quinolones Allergy Cannot Verified 01/06/20 07:46 Remember terbutaline [From Brethine] Allergy Cannot Verified 01/06/20 07:46 Remember Home Meds: Home Meds Aspirin [Low Dose Aspirin EC] 81 mg PO BEDTIME 05/19/16 [History] Carbidopa/Levodopa [Sinemet 25-100 mg Tablet] 1.5 tab PO 0700 05/19/16 [History] Cyanocobalamin (Vitamin B12) [Vitamin B12] 1,000 mcg IM Q30D 05/19/16 [History] Levothyroxine Sodium 100 mcg PO DAILY 05/19/16 [History] Melatonin 5 mg PO BEDTIME 05/19/16 [History] Polyethylene Glycol 3350 [MiraLAX] 8.5 gm PO DAILY 08/06/16 [History] busPIRone HCl [Buspirone HCl] 15 mg PO 0700,1100,1600 04/29/17 [History] Carbidopa/Levodopa [Sinemet 25-100 mg Tablet] 2 tab PO 1000,1300 05/19/17 [ History] Carbidopa/Levodopa [Carbidopa-Levodopa 25-100] 1 tab PO 1600,1900 01/06/20 [ History] ClonazePAM [KlonoPIN] 1 mg PO BID 01/06/20 [History] Diphenhyd/Lidocaine/Nystatin [Magic Mouthwash] 1 tsp PO TID PRN 01/06/20 [ History] Lactulose [Cephulac] 20 gm PO BID #60 cup 01/06/20 [Rx] Mag Hydrox/Aluminum Hyd/Simeth [Mag-Al Hydrox-Simeth Max Susp] 30 ml PO QID PRN 01/06/20 [History] Mirtazapine 30 mg PO BEDTIME 01/06/20 [History] Ondansetron [Zofran] 4 mg PO Q8H PRN 01/06/20 [History] Pantoprazole Sodium [Protonix] 40 mg PO QAM 01/06/20 [History] QUEtiapine Fumarate [Quetiapine Fumarate] 100 mg PO BEDTIME 01/06/20 [History] Tetrahydrozoline HCl [Visine] 1 drop EYEBOTH BID 01/06/20 [History] amantadine HCL [Amantadine] 100 mg PO QAM 01/06/20 [History] oxyCODONE 5 - 10 mg PO Q4HR PRN #90 tab 01/06/20 [Rx] Past Medical History HEENT History: Reports: Cataract, Sinusitis Cardiovascular History: Reports: Hypertension 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: Neurological History: Reports: Parkinson's Psychiatric History: Reports: Anxiety, Depression Endocrine/Metabolic History: Reports: Hypothyroidism Hematologic History: Reports: Anemia, B12 Deficiency - Past Surgical History HEENT Surgical History: Reports: Cataract Surgery, Tonsillectomy Female Surgical History: Reports: Tubal Ligation Musculoskeletal Surgical History: Reports: Knee Replacement, Other (See Below) Other Musculoskeletal Surgeries/Procedures:: BILAT FOOT SURGERY Social & Family History - Family History Family Medical History: Noncontributory - Caffeine Use Caffeine Use: Reports: Coffee - Living Situation & Occupation Living situation: Reports: Single, Alone Occupation: Retired ED ROS GENERAL - Review of Systems Review Of Systems: See Below Constitutional: Reports: Decreased Appetite. Denies: Fever, Chills, Malaise, Weakness, Fatigue HEENT: Reports: No Symptoms Respiratory: Reports: No Symptoms. Denies: Shortness of Breath, Cough Cardiovascular: Reports: No Symptoms. Denies: Chest Pain, Edema Endocrine: Reports: No Symptoms GI/Abdominal: Reports: Abdominal Pain, Diarrhea, Decreased Appetite. Denies: Black Stool, Bloody Stool, Constipation, Nausea, Vomiting : Reports: Dysuria. Denies: Flank Pain, Frequency, Urgency Musculoskeletal: Reports: No Symptoms Skin: Reports: No Symptoms Neurological: Reports: Confusion Psychiatric: Reports: Anxiety, Confusion, Depression, Hallucinations Hematologic/Lymphatic: Reports: No Symptoms Immunologic: Reports: No Symptoms ED EXAM, GENERAL - Physical Exam Exam: See Below Exam Limited By: Altered Mental Status (dementia, hallucinations) General Appearance: Alert, WD/WN, No Apparent Distress Eye Exam: Bilateral Eye: EOMI, Normal Fundi, Normal Inspection, PERRL Throat/Mouth: Other (dry mucous membranes) Head: Atraumatic, Normocephalic Neck: Normal Inspection, Supple, Non-Tender, Full Range of Motion Respiratory/Chest: No Respiratory Distress, Lungs Clear, Normal Breath Sounds, No Accessory Muscle Use, Chest Non-Tender Cardiovascular: Normal Peripheral Pulses, Regular Rate, Rhythm, No Edema, No Gallop, No JVD, No Murmur, No Rub GI/Abdominal: Normal Bowel Sounds, Soft, Non-Tender, No Distention, Hepatomegaly. No: Guarding, Splenomegaly Back Exam: Normal Inspection, Full Range of Motion. No: CVA Tenderness (L), CVA Tenderness (R) Extremities: Normal Inspection, Normal Range of Motion, Non-Tender, Normal Capillary Refill, No Pedal Edema Neurological: Alert, Oriented, CN II-XII Intact, No Motor/Sensory Deficits Psychiatric: Normal Affect, Normal Mood Skin Exam: Warm, Dry, Intact, Normal Color, No Rash Course - Vital Signs Last Recorded V/S: Last Vital Signs Temp 97.7 F 01/06/20 13:01 Pulse 94 01/06/20 13:01 Resp 20 01/06/20 13:01 BP 135/77 01/06/20 13:01 Pulse Ox 96 01/06/20 13:01 - Orders/Labs/Meds Labs: Laboratory Tests 01/06/20 01/06/20 01/06/20 Range/Units 07:22 07:30 07:30 WBC 14.0 H (5.0-10.0) 10^3/uL RBC 4.54 (4.00-5.50) 10^6/uL Hgb 9.7 L (12.0-16.0) g/dL Hct 32.7 L (37.0-47.0) % MCV 72.0 L (82.0-94.0) fL MCH 21.4 L (27.0-32.0) pg MCHC 29.7 L (33.0-38.0) g/dL RDW Coeff of Srinivasa 20.0 H (11.0-15.0) % Plt Count 328 (150-400) 10^3/uL Neut % (Auto) 85.8 H (35-85) % Lymph % (Auto) 7.4 L (10-55) % [place] % (Auto) 6.6 (0-16) % Eos % (Auto) 0.1 (0-5) % Baso % (Auto) 0.1 (0-3) % Neut # (Auto) 12.03 H (1.80-7.00) 10^3/uL Lymph # (Auto) 1.04 (1.00-4.80) 10^3/uL [place] # (Auto) 0.92 H (0.00-0.80) 10^3/uL Eos # (Auto) 0.01 (0.00-0.45) 10^3/uL Baso # (Auto) 0.02 10^3/uL Sodium 137 (136-145) mEq/L Potassium 4.1 (3.5-5.0) mEq/L Chloride 101 (98-106) mEq/L Carbon Dioxide 23 (21-32) mmol/L BUN 15 (7-18) mg/dL Creatinine 1.1 H (0.6-1.0) mg/dL Est Cr Clr Drug Dosing TNP Estimated GFR (MDRD) 48 L (>=60) mL/min Glucose 116 H (75-99) mg/dL Calcium 8.3 L (8.4-10.1) mg/dL Total Bilirubin 2.0 H (0.0-1.0) mg/dL AST 68 H (15-37) U/L ALT 11 L (12-78) U/L Alkaline Phosphatase 987 H (46-116) U/L C-Reactive Protein 15.6 H (0.2-0.8) mg/dL Total Protein 6.2 L (6.4-8.2) g/dL Albumin 2.9 L (3.4-5.0) g/dL Amylase 15 L (25-115) U/L Lipase 58 L (73-393) U/L Urine Color Dark yellow (YELLOW) Urine Appearance Slightly cloudy (CLEAR) Urine pH 5.5 (4.5-8.0) Ur Specific [place] >= 1.030 H (1.003-1.020) Urine Protein 30 H (NEGATIVE) mg/dL Urine Glucose (UA) 100 H (NEGATIVE) mg/dL Urine Ketones 15 H (NEGATIVE) mg/dL Urine Occult Blood Negative (NEGATIVE) Urine Nitrite Negative (NEGATIVE) Urine Bilirubin Large H (NEGATIVE) Urine Urobilinogen >=8.0 H (0.2-1.0) EU/dL Ur Leukocyte Esterase Negative (NEGATIVE) Urine RBC Not seen (0-5) /HPF Urine WBC 0-5 (0-5) /HPF Ur Squamous Epith Cells Moderate H (NOT SEEN) /HPF Amorphous Sediment Few H (NOT SEEN) /HPF Urine Mucus Many H (NOT SEEN) /HPF Meds: Medications Discontinued Medications Generic Name Dose Route Start Last Admin Trade Name Amadou PRN Reason Stop Dose Admin Barium Sulfate 900 ml 01/06/20 11:44 01/06/20 11:45 Readi-Cat 2 PO 01/06/20 11:45 900 ml ONETIME ONE Administration Lactated Ringer's 1,000 mls @ 500 mls/hr 01/06/20 08:00 01/06/20 08:06 Ringers, Lactated IV 01/06/20 09:59 500 mls/hr .BOLUS ONE Administration Iopamidol 100 ml 01/06/20 09:21 01/06/20 11:44 Isovue-370 (76%) IVPUSH 01/06/20 09:22 100 ml ONETIME ONE Administration Morphine Sulfate 2 mg 01/06/20 08:02 01/06/20 08:09 Morphine IVPUSH 01/06/20 08:03 2 mg ONETIME ONE Administration - Radiology Interpretation Free Text/Narrative:: Liver with multiple masses. Mass noted to left breast. Concerning findings of colon. Likely metastatic colon cancer. CT Results Date: 01/06/20 CT Results Time: 12:10 - Re-Assessments/Exams Free Text/Narrative Re-Assessment/Exam: 01/06/20 09:16 US shows significantly enlarged liver. Consulted with radiologist. Will proceed with CT abdomen/pelvis. Patient will have to drink oral contrast for this. Will keep in extended ER. 01/06/20 12:[address] Dr. Mcmullen, who is also patients PCP in SNF. Son and patient unsure of previous colonoscopy. Patient previously doctor with Dr. Duff. Will try to obtain records. I discussed CT findings with patient and patient's son Grant Prado. Discussed significance of likely stage 4 colon cancer and whether or not they would like to seek treatment. Patient reports she does not want to prolong life and would rather be kept comfortable. Son agrees, but would like to further discuss this with his siblings. Dr. Mcmullen contacted Skylar Stark RN at [facility] regarding findings and plan. They will arrange for family care conference if family wishes or has further questions. Length of ED visit prolonged due to significant findings requiring additional time for workup. Departure - Departure Time of Disposition: 13:16 Disposition: Home, Self-Care 01 Condition: Poor Clinical Impression: Liver masses, Mass of colon, Lymphadenopathy, abdominal, Left breast mass - Discharge Information *PRESCRIPTION DRUG MONITORING PROGRAM REVIEWED*: Yes *COPY OF PRESCRIPTION DRUG MONITORING REPORT IN PATIENT ROSARIO: Yes Prescriptions: oxyCODONE 5 - 10 mg PO Q4HR PRN #90 tab PRN Reason: Pain Lactulose [Cephulac] 20 gm PO BID #60 cup Referrals: Tamiko Davila, [facility] [Emergency Provider] - Forms: ED Department Discharge Additional Instructions: - Stop Tylenol - Start Lactulose 20 mg BID - Start Oxycodone 5 mg 1-2 tablets every 4-6 hours as needed for pain - Recommend consultation with psychiatry regarding continued Seroquel and Remeron - LHGS to arrange family care conference with Dr. Mcmullen if they so wish to discuss further treatment options- colonoscopy for biopsy/oncology referral vs. hospice. This should be made over the weekend so if they so desire to proceed with treatment we can get that started FANI. Sepsis Event Note - Evaluation Sepsis Screening Result: No Definite Risk - Focused Exam Date Exam was Performed: 01/08/20 Time Exam was Performed: 12:53 - Problem List & Annotations (1) Palliative care status SNOMED Code(s): 814454366 Code(s): Z51.5 - ENCOUNTER FOR PALLIATIVE CARE Status: Acute (2) Left breast mass SNOMED Code(s): 91400475 Code(s): N63.20 - UNSPECIFIED LUMP IN THE LEFT BREAST, UNSPECIFIED QUADRANT Status: Acute (3) Liver masses SNOMED Code(s): 435442668 Code(s): R16.0 - HEPATOMEGALY, NOT ELSEWHERE CLASSIFIED Status: Acute (4) Lymphadenopathy, abdominal SNOMED Code(s): 288599221 Code(s): R59.0 - LOCALIZED ENLARGED LYMPH NODES Status: Acute (5) Mass of colon SNOMED Code(s): 926624260 Code(s): K63.89 - OTHER SPECIFIED DISEASES OF INTESTINE Status: Acute - Assessment/Plan Assessment:: Liver masses Colon Mass Lymphadenopathy of abdomen Left breast mass Palliative Care Status Plan: 74 yo female who presented to ED via [facility] with c/o abdominal pain. Lab work significant for WBC 67501, hgb 9.7, alk phos 987, bilirubin 2.0, CRP 15.7. Initially proceeded with abdominal US, which revealed multiple masses of liver and hepatomegaly. Opted to continue with CT abdomen/pelvis to further evaluate abdomen. CT findings highly concerning for metastatic colon cancer. Initially consulted with Dr. Mcmullen to see if he would be willing to biopsy if patient/family so wishes. Discussed lab results and CT findings with patient and patient's son. Discussed that even with further workup/treatment, likelihood of curative therapy at this point is unlikely. Dr. Mcmullen also discussed findings with patient. Both son and patient feel that they would rather treat palliatively vs aggressively, but they would like to think about options over the weekend. Did discuss that if they wish to proceed with treatment, we would need to arrange for biopsy and oncology referral early next week. Dr. Mcmullen discussed case with Skylar RIVERA at [facility], who will arrange for care conference if family wishes. I will touch base to assist in this Thursday. Patient feels comfortable discharging back to [facility]. Patient will be discharged home on oxycodone 5-10 mg PO every 4-6 hours as needed for pain. We will also start her on lactulose 20 mg BID. She is advised to stop use of acetaminophen. Also recommended Skylar RN consult with patient's psychiatrist regarding continued use of psych meds with current liver findings. Patient discharged from facility in satisfactory condition. We will arrange for either further workup/referral to oncology or hospice referral early next week.
[2020-01-06] MEDS ORDERED: Lactated Ringers 1,000 ML IV ONE (08:00)
[2020-01-06] MEDS ORDERED: Morphine 2 MG/ML Syringe IVPUSH ONE (08:02)
[2020-01-06] MEDS ORDERED: Iopamidol 755 Mg/ML 100 ML Bottle IVPUSH ONE (09:21)
[2020-01-06] MEDS ORDERED: Barium Sulfate Oral Susp 450 ML Bottle PO ONE (11:44)
[2020-01-06 13:02] VITALS: BP 135/77; PULSE 94
== END 2020-01-06 14:47 | disposition home or self-care (01) ==
LOC: CC.ED 07:19
DX: K63.89 Other specified diseases of intestine (principal); R16.0 Hepatomegaly, not elsewhere classified; R59.0 Localized enlarged lymph nodes; N63.20 Unspecified lump in the left breast, unspecified quadrant; G20 Parkinson's disease; F03.90 Unspecified dementia, unspecified severity, without behavioral disturbance, psychotic disturbance, mood disturbance, and anxiety; E03.9 Hypothyroidism, unspecified; F41.9 Anxiety disorder, unspecified; F32.9 Major depressive disorder, single episode, unspecified; Z88.1 Allergy status to other antibiotic agents; Z88.8 Allergy status to other drugs, medicaments and biological substances; Z79.82 Long term (current) use of aspirin; Z79.899 Other long term (current) drug therapy; Z51.5 Encounter for palliative care
CPT/HCPCS: 36415; 74177; 76705; 80053; 81001; 82150; 83690; 85025; 86140; 96361; 96374; 99284; 99284-25; J2270; J7120; Q9967